=== PATIENT | male | born 1970 | race Caucasian/White ===

== ENCOUNTER 2022-04-12 20:50 | Emergency (ER) | payer OTHER ==
[~2022-04-12] VITALS: Ht 157.5 cm; Wt 59.0 kg
[~2022-04-12 20:50] MED LIST: AMOX500 PO; CODGUAEL PO; CYCL10; CYCL10 PO; DIAZ5 PO; HYDACE10B PO; HYDACE5 PO; HYDACE7.5 PO; HYDMOR2 PO; IBU PRN ONLY; IBUP600 PO; IBUP800; IBUP800 PO; LEVSOD100 PO; LORA2 PO; NAPR500 PO; NAPR550 PO; OXYACE7.5T PO; PENVK500 PO; PRED10 PO; PROM25 PO; RXCYCL10 PO; RXHYDMOR2 PO; RXNAPNA550 PO; RXTRAM50 PO
[2022-04-12] MEDS ORDERED: IBUP600 PO (23:09)
[2022-04-12] MEDS ORDERED: NEURONTIN300 MG PO (23:35)
[2022-04-12] MEDS ORDERED: LEVOTHYROXINE112 M16 (23:36)
== END 2022-04-12 23:52 | disposition home or self-care (01) ==
LOC: ER 20:50
DX: S50.11XA Contusion of right forearm, initial encounter (principal); W06.XXXA Fall from bed, initial encounter; Z79.890 Hormone replacement therapy; Z79.899 Other long term (current) drug therapy
CPT/HCPCS: 73090; 90471; 90714; 99283-25; A9270